=== PATIENT | female | born 2000 | race Caucasian/White ===

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

== ENCOUNTER 2019-03-20 19:58 | Emergency (ER) | payer OTHER ==
[~2019-03-20] VITALS: Ht 160 cm; Wt 106.1 kg
[2019-03-20 20:28] VITALS: Ht 160 cm; Wt 106.1 kg
[2019-03-20 22:29] VITALS: BP 118/74
== END 2019-03-20 22:29 | disposition home or self-care (01) ==
LOC: ED 19:58
DX: S83.92XA Sprain of unspecified site of left knee, initial encounter (principal); G89.29 Other chronic pain; R10.9 Unspecified abdominal pain; M54.9 Dorsalgia, unspecified; Z88.8 Allergy status to other drugs, medicaments and biological substances; W22.8XXA Striking against or struck by other objects, initial encounter; Y93.89 Activity, other specified; Y92.89 Other specified places as the place of occurrence of the external cause; Y99.8 Other external cause status

== ENCOUNTER 2019-03-21 18:17 | Emergency (ER) | payer OTHER ==
[~2019-03-21] VITALS: Ht 160 cm; Wt 105.7 kg
[2019-03-21 18:58] VITALS: Ht 160 cm; Wt 105.7 kg
[2019-03-21 20:39] VITALS: BP 131/81
== END 2019-03-21 20:39 | disposition home or self-care (01) ==
LOC: ED 18:17
DX: S86.912D Strain of unspecified muscle(s) and tendon(s) at lower leg level, left leg, subsequent encounter (principal); J45.909 Unspecified asthma, uncomplicated; G89.29 Other chronic pain; Z88.8 Allergy status to other drugs, medicaments and biological substances; V09.20XD Pedestrian injured in traffic accident involving unspecified motor vehicles, subsequent encounter